=== PATIENT | female | born 1950 | race Hispanic/Latino ===

== ENCOUNTER 2016-09-13 09:48 | Outpatient (CLI) | payer MEDICARE, OTHER ==
--- NOTE | 2016-09-17 08:09 | PET Report ---
PET SB TO MT subsequent: HISTORY: Restaging of lung cancer. TECHNIQUE: 14.4 millicuries F-18 FDG was administered intravenously. Noncontrast CT images and PET images were obtained from the skull base to the proximal thighs. Fused images were reviewed on a workstation. The patient's blood glucose level measured 109. COMPARISON: 06/14/16. FINDINGS: BRAIN: physiologic FDG uptake in the imaged brain. NECK: physiologic FDG uptake. Uptake in the muscles of mastication is noted. MEDIASTINUM: physiologic FDG uptake. LUNGS: physiologic FDG uptake. PLEURA/PERICARDIUM: physiologic FDG uptake. THORACIC LYMPH NODES: physiologic FDG uptake. HEPATOBILIARY: physiologic FDG uptake. Mean liver SUV measures 4.6 as compared to 4.4 on the previous exam. PANCREAS: physiologic FDG uptake. SPLEEN: physiologic FDG uptake. ADRENAL GLANDS: physiologic FDG uptake. No change in the 2 cm left adrenal nodule. KIDNEYS/RENAL COLLECTING SYSTEMS: physiologic FDG uptake. BOWEL/MESENTERY: physiologic FDG uptake. PELVIC VISCERA: physiologic FDG uptake. ABDOMINAL/PELVIC LYMPH NODES: physiologic FDG uptake. MUSCULOSKELETAL: physiologic FDG uptake. IMPRESSION: Negative PET/CT. Stable findings since 06/14/16. No evidence for disease recurrence or metastasis.
== END 2016-09-13 09:49 | disposition home or self-care (01) ==
LOC: PET 09:48
PROVIDERS: ATTEND Internal Medicine Hematology & Oncology
DX: C34.2 Malignant neoplasm of middle lobe, bronchus or lung (principal)
CPT/HCPCS: 78815; A9552; 82962

== ENCOUNTER 2016-11-16 09:37 | Outpatient (CLI) | payer MEDICARE, OTHER ==
--- NOTE | 2016-11-17 10:44 | Magnetic Resonance Report ---
MRI OF THE BRAIN AND PITUITARY WITHOUT AND WITH CONTRAST: 11/16/16 CLINICAL: Adrenal insufficiency. Nivolumab treatment and hypophysitis. COMPARISON: None. TECHNIQUE: Sagittal T1, axial FLAIR and T2 whole brain sequences plus sagittal, coronal and axial thin slice postcontrast T1 pituitary sequences on a 1.5 Rosie magnet. 15cc of Multihance was injected intravenously for the contrast portion of the exam. Consent was obtained prior to the administration of contrast. FINDINGS: The ventricles and sulci are normal for age. Moderate bilateral multifocal periventricular and subcortical white matter hyperintensities on FLAIR and T2. No restricted diffusion. There is evidence of a late subacute right occipital lobe infarct with T2 hyperintensity, mild sulcal effacement and gyral T1 hyperintensity. No evidence of hemorrhage. The pituitary is small with normal enhancement. The stalk deviates to the left but is normal size(1.3 mm) with no abnormal thickening or enhancement. The suprasellar cistern and optic chiasm appear normal. The cavernous sinuses are normal. IMPRESSION: 1. Normal pituitary with no evidence of hypophysitis. 2. 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 3. No acute change.
== END 2016-11-16 09:38 | disposition home or self-care (01) ==
LOC: SPVIMAG 09:37
PROVIDERS: ATTEND Internal Medicine Hematology & Oncology
DX: C34.2 Malignant neoplasm of middle lobe, bronchus or lung (principal); E27.40 Unspecified adrenocortical insufficiency; E23.6 Other disorders of pituitary gland
CPT/HCPCS: 70553; A9577

== ENCOUNTER 2017-01-24 09:33 | Outpatient (CLI) | payer MEDICARE, OTHER ==
--- NOTE | 2017-01-25 09:17 | PET Report ---
PET SB TO MT SUBSEQUENT: HISTORY: Restaging of lung cancer. TECHNIQUE: 13.8 millicuries F-18 FDG was administered intravenously. Noncontrast CT images and PET images were obtained from the skull base to the proximal thighs. Fused images were reviewed on a workstation. The patient's blood glucose level measured 108. COMPARISON: 09/13/16. FINDINGS: BRAIN: physiologic FDG uptake in the imaged brain. NECK: physiologic FDG uptake. MEDIASTINUM: physiologic FDG uptake. LUNGS: physiologic FDG uptake. PLEURA/PERICARDIUM: physiologic FDG uptake. THORACIC LYMPH NODES: physiologic FDG uptake. HEPATOBILIARY: physiologic FDG uptake. Mean liver SUV measures 4.5. PANCREAS: physiologic FDG uptake. SPLEEN: physiologic FDG uptake. ADRENAL GLANDS: physiologic FDG uptake. KIDNEYS/RENAL COLLECTING SYSTEMS: physiologic FDG uptake. No change in the 2 cm left adrenal nodule which probably represents an adenoma. BOWEL/MESENTERY: physiologic FDG uptake. Umbilical hernia containing fat is again noted. PELVIC VISCERA: physiologic FDG uptake. ABDOMINAL/PELVIC LYMPH NODES: physiologic FDG uptake. MUSCULOSKELETAL: physiologic FDG uptake. IMPRESSION: Negative PET/CT. Stable findings since 09/13/16.
== END 2017-01-24 09:34 | disposition home or self-care (01) ==
LOC: PET 09:33
PROVIDERS: ATTEND Internal Medicine Hematology & Oncology
DX: C34.2 Malignant neoplasm of middle lobe, bronchus or lung (principal); E27.8 Other specified disorders of adrenal gland; K42.9 Umbilical hernia without obstruction or gangrene; I10 Essential (primary) hypertension; I25.10 Atherosclerotic heart disease of native coronary artery without angina pectoris; E78.00 Pure hypercholesterolemia, unspecified; J44.9 Chronic obstructive pulmonary disease, unspecified; F41.9 Anxiety disorder, unspecified; F17.290 Nicotine dependence, other tobacco product, uncomplicated; Z79.899 Other long term (current) drug therapy
CPT/HCPCS: 78815; 82962; A9552

== ENCOUNTER 2017-04-25 10:52 | Outpatient (CLI) | payer MEDICARE, OTHER ==
--- NOTE | 2017-04-26 12:58 | PET Report ---
PET SB TO MT SUBSEQUENT: HISTORY: Restaging of lung cancer. TECHNIQUE: 13.5 millicuries F-18 FDG was administered intravenously. Noncontrast CT images and PET images were obtained from the skull base to the proximal thighs. Fused images were reviewed on a workstation. The patient's blood glucose level measured 95. COMPARISON: 01/24/17. FINDINGS: BRAIN: physiologic FDG uptake in the imaged brain. NECK: physiologic FDG uptake. MEDIASTINUM: physiologic FDG uptake. LUNGS: physiologic FDG uptake. PLEURA/PERICARDIUM: physiologic FDG uptake. THORACIC LYMPH NODES: physiologic FDG uptake. HEPATOBILIARY: physiologic FDG uptake. Mean liver SUV measures 3.8 as opposed to 4.5 on the previous exam. PANCREAS: physiologic FDG uptake. SPLEEN: physiologic FDG uptake. ADRENAL GLANDS: physiologic FDG uptake. No change in a 2 cm left adrenal nodule. KIDNEYS/RENAL COLLECTING SYSTEMS: physiologic FDG uptake. BOWEL/MESENTERY: physiologic FDG uptake. PELVIC VISCERA: physiologic FDG uptake. ABDOMINAL/PELVIC LYMPH NODES: physiologic FDG uptake. MUSCULOSKELETAL: physiologic FDG uptake. IMPRESSION: Negative PET/CT. Stable findings since 01/24/17.
== END 2017-04-25 10:53 | disposition home or self-care (01) ==
LOC: PET 10:52
PROVIDERS: ATTEND Internal Medicine Hematology & Oncology
DX: C34.2 Malignant neoplasm of middle lobe, bronchus or lung (principal); E27.8 Other specified disorders of adrenal gland; Z79.899 Other long term (current) drug therapy
CPT/HCPCS: 78815; 82962; A9552

== ENCOUNTER 2017-05-15 19:56 | Emergency (ER) | payer MEDICARE, OTHER ==
[2017-05-15 21:24] VITALS: BP 122/71
[2017-05-15] MEDS ORDERED: NORCO 5/325 PO ONE (23:11)
[2017-05-15] MEDS ORDERED: ZOFRAN ODT PO ONE (23:11)
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
== END 2017-05-16 00:52 | disposition home or self-care (01) ==
LOC: ED 19:56
DX: M54.5 Low back pain (principal); G89.29 Other chronic pain; I10 Essential (primary) hypertension; J44.9 Chronic obstructive pulmonary disease, unspecified; I25.2 Old myocardial infarction; V49.59XA Passenger injured in collision with other motor vehicles in traffic accident, initial encounter; Y93.89 Activity, other specified; Y92.89 Other specified places as the place of occurrence of the external cause; Y99.8 Other external cause status
CPT/HCPCS: 72131; 93005; 93010; Q0162

== ENCOUNTER 2017-10-24 05:38 | Outpatient (CLI) | payer MEDICARE, OTHER ==
--- NOTE | 2017-10-28 09:05 | PET Report ---
PET SB TO MT SUBSEQUENT: HISTORY: Restaging of lung cancer. TECHNIQUE: 14.1 millicuries F-18 FDG was administered intravenously. Noncontrast CT images and PET images were obtained from the skull base to the proximal thighs. Fused images were reviewed on a workstation. The patient's blood glucose level measured 97. COMPARISON: Multiple previous exams with the most recent being 04/25/17. FINDINGS: BRAIN: physiologic FDG uptake in the imaged brain. NECK: physiologic FDG uptake. MEDIASTINUM: physiologic FDG uptake. LUNGS: physiologic FDG uptake. No pulmonary mass or nodule has developed. 1.3 cm right middle lobe cyst is unchanged. PLEURA/PERICARDIUM: physiologic FDG uptake. THORACIC LYMPH NODES: physiologic FDG uptake. HEPATOBILIARY: physiologic FDG uptake. Mean liver SUV measures 3.5 as opposed to 4.0 on the previous exam. PANCREAS: physiologic FDG uptake. SPLEEN: physiologic FDG uptake. ADRENAL GLANDS: physiologic FDG uptake. Stable 1.6 cm low density left adrenal mass with Max SUV measuring 2.4. This may represent an adrenal adenoma. KIDNEYS/RENAL COLLECTING SYSTEMS: physiologic FDG uptake. BOWEL/MESENTERY: physiologic FDG uptake. PELVIC VISCERA: physiologic FDG uptake. Hysterectomy changes. ABDOMINAL/PELVIC LYMPH NODES: physiologic FDG uptake. MUSCULOSKELETAL: physiologic FDG uptake. 6.4 cm umbilical hernia containing fat is unchanged. No suspicious bony lesions are detected. IMPRESSION: Negative PET/CT. No evidence of disease recurrence or metastasis.
== END 2017-10-24 05:39 | disposition home or self-care (01) ==
LOC: PET 05:38
PROVIDERS: ATTEND Internal Medicine Hematology & Oncology
DX: C34.2 Malignant neoplasm of middle lobe, bronchus or lung (principal); E27.8 Other specified disorders of adrenal gland; K42.9 Umbilical hernia without obstruction or gangrene; Z79.899 Other long term (current) drug therapy; Z90.710 Acquired absence of both cervix and uterus
CPT/HCPCS: 78815; 82962; A9552

== ENCOUNTER 2017-11-11 12:56 | Outpatient (CLI) | payer MEDICARE, OTHER | END 2017-11-11 12:57 | disposition home or self-care (01) | LOC: VAS 12:56 | PROVIDERS: ATTEND Internal Medicine Hematology & Oncology | DX: M79.605 Pain in left leg (principal); M79.89 Other specified soft tissue disorders; C34.2 Malignant neoplasm of middle lobe, bronchus or lung ==